=== PATIENT | male | born 1970 | race Caucasian/White ===

== ENCOUNTER 2017-12-13 08:05 | Outpatient (CLI) | payer BC ==
--- NOTE | 2017-12-13 10:26 | MRI ---
MRI RIGHT SHOULDER WITHOUT CONTRAST: Date: 12/13/17 HISTORY: 46.001A, injury of right rotator cuff. COMPARISON: None. FINDINGS: Biceps Tendon: There is moderate fluid around the extraarticular biceps tendon. Glenoid Labrum: There is an abnormal signal insinuating the superior labrum suggesting degenerative type tear. Rotator Cuff: There is a hidden interstitial tear of the mid supraspinatus tendon fibers at the footplate measuring 3.0 mm in transverse x 6.0 mm in AP dimension. There is mild adjacent tendinosis of the infraspinatu s tendon. There is partial tearing of the myotendinous junction subscapularis. There is edema along the anterio r fibers of the subscapularis/myotendinous junction. There is also partial tear and abnormal wavy con figuration of the pectoralis major tendon. Muscles: Abnormal edema within the subscapularis muscle deep fibers. Bones: No acute fracture. No malalignment. Mild degenerative disease acromioclavicular joints. There is a Ty pe I acromion. There is a soft tissue contusion of the superficial soft tissues posterior superior shoulder. There a lso appears to be contusion of the supraspinatus muscle, as well as the trapezius muscle. IMPRESSION: 1. Low grade partial tear of the craniad most fibers of the pectoralis major tendon with a wavy cont our at the humerus. 2. Grade II partial tearing of the myotendinous junction of the supraspinatus craniad fibers, as wel l as contusions of the supraspinatus and trapezius muscles, along with low grade contusion of the del toid and infraspinatus muscles. 3. No displaced fracture. 4. Abnormal degenerative signal in superior labrum suggesting chronic-type tearing. 5. Hidden interstitial tear of the mid fibers of supraspinatus tendon measuring 3.0 mm in transverse x 6.0 mm in AP dimension. POS: [facility]
== END 2017-12-13 08:06 | disposition home or self-care (01) ==
LOC: SCSMRI 08:05
PROVIDERS: ATTEND Family Medicine
DX: S46.001A Unspecified injury of muscle(s) and tendon(s) of the rotator cuff of right shoulder, initial encounter (principal); S40.011A Contusion of right shoulder, initial encounter; S46.011A Strain of muscle(s) and tendon(s) of the rotator cuff of right shoulder, initial encounter